=== PATIENT | male | born 1955 | race Caucasian/White ===

== ENCOUNTER 2017-11-24 14:01 | Emergency (ER) | payer OTHER, SELFPAY ==
[2017-11-24] VITALS (20 sets, daily range): BP systolic 121–152; BP diastolic 58–82; PULSE 72–112; RESP 12–29; TEMP 37; O2SAT 90–97
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
[2017-11-24 14:24] LABS: Abs Immature Grans 0.01 k/cumm (0.0-0.09); Absolute Basophil Count 0.02 k/cumm (0.0-0.2); Absolute Eosinophil Count 0.27 k/cumm (0.0-0.7); Absolute Lymphocyte Count 1.23 k/cumm (1.2-3.4); Absolute Monocyte Count 0.44 k/cumm (0.11-0.7); Basophils % 0.4; Eosinophils % 5.8; HCT 43.3 % (40.0-50.0); HGB 14.7 g/dL (13.5-17.5); Immature Grans % 0.2; Lymphocytes % 26.3; Mean Corp. HGB Concentration 33.9 g/dL (32.0-36.0); Mean Corpuscular Hemoglobin 30.2 pg (27.0-33.0); Mean Corpuscular Volume 88.9 fL (80-95); Mean Platelet Volume 9.8 fL (8.0-11.0); Monocytes % 9.4; Neutrophils % 57.9; Platelet Count 184 x1000/uL (130-400); RBC 4.87 m/cumm (4.50-6.00); RBC Distribution Width 12.9 % (11.8-14.1); White Blood Cell Count 4.67 k/cumm (4.4-10.8)
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
[2017-11-24 14:39] LABS: ALT 72 U/L (12-78); AST 63 U/L (15-37); Albumin 3.6 g/dL (3.4-5.0); Alkaline Phosphatase 73 U/L (46-116); BUN 19 mg/dL (7-18); Bilirubin, Total 0.6 mg/dL (0.2-1.0); CREATININE 0.91 mg/dL (0.70-1.30); Calcium 8.4 mg/dL (8.5-10.1); Chloride 105 mmol/L (98-107); Glucose 108 mg/dL (70-100); Sodium 138 mmol/L (136-145); Total Protein 6.6 g/dL (6.4-8.2)
[2017-11-24 14:40] LABS: Troponin I < 0.02 ng/mL (0.00-0.06)
--- NOTE | 2017-11-24 15:06 | DI.REPORT_ITS ---
SYMPTOMS/DIAGNOSIS: PAIN RIGHT FOREARM: Two views. No acute fracture or dislocation is seen. No radiopaque foreign bodies are present in the soft tissues. IMPRESSION: No acute abnormality.
[2017-11-24] MEDS: Lactated Ringers 1,000 ML 150 ML IV (15:11)
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
[2017-11-24 15:22] LABS: Bilirubin Negative (Negative); Blood Large (Negative); Clarity Sl Cloudy; Glucose Negative (Negative); Ketones Negative (Negative); Leukocyte Esterase Negative (Negative); Nitrite Negative (Negative); Specific Gravity 1.015 (1.005-1.025); Urobilinogen 0.2 EU/dL (Up TO 0.2); pH 5.5 (5-8)
[2017-11-24 15:34] LABS: C & S Indicated? Yes; RBC >50 (0-2)
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
[2017-11-24] MEDS: Omnipaque 350 MG/ML 100 ML BTL IV (15:40)
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
[2017-11-24] MEDS: HYDROmorphone 2 MG/ML VIAL 0.5 MG IVP (16:30)
--- NOTE | 2017-11-26 17:28 | NUR.NOTE ---
Nursing Note: [place] [facility] [place]cp to sent urine culture results to.
== END 2017-11-24 16:42 | disposition home or self-care (01) ==
PROVIDERS: Emergency Provider Student in an Organized Health Care Education/Training Program
DX: R31.0 Gross hematuria (principal); S27.322A Contusion of lung, bilateral, initial encounter; M79.631 Pain in right forearm; M54.5 Low back pain; M54.2 Cervicalgia; V23.4XXA Motorcycle driver injured in collision with car, pick-up truck or van in traffic accident, initial encounter
CPT/HCPCS: 36415; 74177; 80053; 86850; 86900; 86901; 96361; 96374; 99285; 70450; 71260; 72125; 73090; 81003; 81015; 84484; 85025; 87086; J3490